=== PATIENT | male | born 1945 | race Two or more races ===

== ENCOUNTER → 2020-11-08 11:04 | Outpatient (BNVA) | payer OTHER, SELFPAY | PROVIDERS: Visit Provider Physician Assistant | DX: S50.01XA Contusion of right elbow, initial encounter (principal); W20.8XXA Other cause of strike by thrown, projected or falling object, initial encounter | CPT/HCPCS: 99202 ==

== ENCOUNTER → 2020-11-11 13:16 | Outpatient (BNVA) | payer OTHER, SELFPAY | PROVIDERS: Visit Provider Internal Medicine | DX: S50.01XA Contusion of right elbow, initial encounter (principal); X58.XXXA Exposure to other specified factors, initial encounter | CPT/HCPCS: 99213 ==

== ENCOUNTER → 2020-11-15 14:35 | Outpatient (BNVA) | payer OTHER, SELFPAY | PROVIDERS: Visit Provider Internal Medicine | DX: S52.121D Displaced fracture of head of right radius, subsequent encounter for closed fracture with routine healing (principal); X58.XXXD Exposure to other specified factors, subsequent encounter | CPT/HCPCS: 73080; 99214 ==

== ENCOUNTER → 2020-11-22 14:12 | Outpatient (BNVA) | payer OTHER, SELFPAY | PROVIDERS: Visit Provider Internal Medicine | DX: S52.121D Displaced fracture of head of right radius, subsequent encounter for closed fracture with routine healing (principal); X58.XXXD Exposure to other specified factors, subsequent encounter | CPT/HCPCS: 99213 ==

== ENCOUNTER 2020-11-23 12:49 | Outpatient (REF) | payer OTHER, SELFPAY ==
--- NOTE | ~2020-11-23 | XR_ITS ---
EXAMINATION: XR ELBOW, RIGHT CLINICAL INFORMATION: S42.401A - Unspecified fracture of lower end of right humerus, initial encounter for closed fracture Patient Shielded? COMPARISON: Radiographs right elbow 11/15/2020. TECHNIQUE: Right elbow is imaged in 4 views. FINDINGS: The capsular effusion appears decreased. There is no visible fracture, dislocation or destructive process. No focal joint narrowing or erosive change. Again, there is spurring and proximal tendon mineralization adjacent to lateral epicondyle and tendon mineralization insertion radial tuberosity as previously noted. XR/XR elbow RT min 3V IMPRESSION: 1. Moderate elbow capsular effusion, decreased from 11/15/2020. 2. No visible fracture or dislocation. 3. Spurring and mineralization tendon origin lateral epicondyle and tendon insertion radial tuberosity.
--- NOTE | ~2020-11-23 | XR_ITS ---
EXAMINATION: XR RIGHT WRIST WITH SCAPHOID VIEW CLINICAL INFORMATION: Pain right wrist. COMPARISON: None. TECHNIQUE: 4 views. FINDINGS: There is no visible acute fracture, dislocation or subluxation. The radioulnar carpal and intercarpal joint articulation is normal. No visible acute fracture or dislocation seen. There is calcification of TFC. The soft tissues are normal. XR/XR wrist RT w scaphoid IMPRESSION: Mild degenerative changes of the wrist joint. No visible acute fracture or dislocation.
== END 2020-11-23 12:50 | disposition home or self-care (01) ==
LOC: HO.HOSX 12:49
PROVIDERS: Visit Provider Orthopaedic Surgery
DX: S62.001A Unspecified fracture of navicular [scaphoid] bone of right wrist, initial encounter for closed fracture (principal); M25.531 Pain in right wrist; M25.521 Pain in right elbow
CPT/HCPCS: 24650; 73080; 73110; 99202

== ENCOUNTER 2020-12-21 09:19 | Outpatient (REF) | payer OTHER, SELFPAY ==
--- NOTE | ~2020-12-21 | XR_ITS ---
EXAMINATION: XR RIGHT ELBOW AND RIGHT WRIST CLINICAL INFORMATION: Pain right elbow and right wrist. COMPARISON: None. TECHNIQUE: AP, lateral, and oblique views of the right elbow. Right wrist 3 views. FINDINGS: Right Wrist: There is no visible acute fracture or dislocation. There is mild osteopenia. There is loss of radioulnar carpal joint space and mild subchondral cystic changes along the base of the 5th metacarpal. There are vascular calcifications present. There is mild palmar soft tissue swelling. Right Elbow: There is no visible acute fracture, dislocation or subluxation. No bony erosive changes. There is anterior elbow joint effusion. XR/XR elbow RT min 3V IMPRESSION: Mild degenerative changes right wrist. No visible acute fracture or dislocation. Anterior elbow joint effusion. This could be secondary to inflammatory changes or an occult fracture. Correlate with patient's clinical history of any trauma.
--- NOTE | ~2020-12-21 | XR_ITS ---
EXAMINATION: XR RIGHT ELBOW AND RIGHT WRIST CLINICAL INFORMATION: Pain right elbow and right wrist. COMPARISON: None. TECHNIQUE: AP, lateral, and oblique views of the right elbow. Right wrist 3 views. FINDINGS: Right Wrist: There is no visible acute fracture or dislocation. There is mild osteopenia. There is loss of radioulnar carpal joint space and mild subchondral cystic changes along the base of the 5th metacarpal. There are vascular calcifications present. There is mild palmar soft tissue swelling. Right Elbow: There is no visible acute fracture, dislocation or subluxation. No bony erosive changes. There is anterior elbow joint effusion. XR/XR wrist RT w scaphoid IMPRESSION: Mild degenerative changes right wrist. No visible acute fracture or dislocation. Anterior elbow joint effusion. This could be secondary to inflammatory changes or an occult fracture. Correlate with patient's clinical history of any trauma.
== END 2020-12-21 09:20 | disposition home or self-care (01) ==
LOC: HO.HOSX 09:19
PROVIDERS: Visit Provider Orthopaedic Surgery
DX: M25.521 Pain in right elbow (principal); M25.531 Pain in right wrist; J43.9 Emphysema, unspecified; Z87.891 Personal history of nicotine dependence; Z90.49 Acquired absence of other specified parts of digestive tract; S62.001A Unspecified fracture of navicular [scaphoid] bone of right wrist, initial encounter for closed fracture; X50.3XXA Overexertion from repetitive movements, initial encounter; Y93.89 Activity, other specified; Y92.69 Other specified industrial and construction area as the place of occurrence of the external cause; Y99.8 Other external cause status
CPT/HCPCS: 73080; 73110; 99212

== ENCOUNTER 2020-12-30 10:53 | Outpatient (REF) | payer OTHER, SELFPAY ==
--- NOTE | ~2020-12-30 | MR_ITS ---
EXAMINATION: MR WRIST WITHOUT CONTRAST, RIGHT CLINICAL INFORMATION: Right wrist pain. COMPARISON: Radiographs 12/21/2020 TECHNIQUE: MRI of the wrist was performed using routine sequences on a high-field scanner. Image quality is degraded by patient motion artifact. FINDINGS: There is increased signal throughout the scapholunate ligament with ill-defined areas of irregularity likely representing at least a partial tear. There are degenerative marrow changes of the scaphoid and lunate at the scapholunate junction. The lunotriquetral ligament appears intact. The triangular fibrocartilage complex appears to be intact with degeneration/synovitis at the peripheral attachments onto the ulnar styloid, and degenerative marrow change of the radius at the radial attachment. Small effusions of the radiocarpal and midcarpal joints with degenerative changes elsewhere including the triscaphoid articulation, junction of the trapezoid and capitate, and junction of the lunate with the proximal hamate. The carpal tunnel, flexor and extensor tendons appear intact. MR/MR wrist RT wo con IMPRESSION: Degenerative changes, as described, with joint effusions and probable partial tearing of the scapholunate ligament without interval widening.
== END 2020-12-30 10:54 | disposition home or self-care (01) ==
LOC: HO.MRI 10:53
PROVIDERS: Visit Provider Orthopaedic Surgery
DX: M25.531 Pain in right wrist (principal)
CPT/HCPCS: 73221

== ENCOUNTER → 2021-01-10 11:29 | Outpatient (BNVA) | payer OTHER, SELFPAY | PROVIDERS: Visit Provider Orthopaedic Surgery | DX: M25.531 Pain in right wrist (principal); M25.521 Pain in right elbow; M25.511 Pain in right shoulder | CPT/HCPCS: 99212 ==

== ENCOUNTER 2021-01-20 08:42 | Outpatient (REF) | payer OTHER, MEDICARE, SELFPAY ==
--- NOTE | ~2021-01-20 | XR_ITS ---
EXAMINATION: XR SHOULDER, RIGHT CLINICAL INFORMATION: Pain in the shoulder COMPARISON: None TECHNIQUE: Three views of the right shoulder. FINDINGS: No fracture or dislocation. Mild joint space narrowing with small osteophytes. Chondrocalcinosis noted. The acromioclavicular joint is intact with mild hypertrophic degenerative change. The visualized ribs are intact. Bandlike opacity in the visualized right midlung. XR/XR shoulder RT min 2V IMPRESSION: Mild degenerative changes of the right shoulder.
== END 2021-01-20 08:43 | disposition home or self-care (01) ==
LOC: HO.HOSX 08:42
PROVIDERS: Visit Provider Physician Assistant
DX: M25.511 Pain in right shoulder (principal); M75.41 Impingement syndrome of right shoulder
CPT/HCPCS: 20610; 73030; 99202; J1040

== ENCOUNTER → 2021-03-03 13:05 | Outpatient (BNVA) | payer OTHER, MEDICARE, SELFPAY | PROVIDERS: Visit Provider Physician Assistant | DX: M75.41 Impingement syndrome of right shoulder (principal); M25.519 Pain in unspecified shoulder | CPT/HCPCS: 99212 ==

== ENCOUNTER → 2021-03-28 13:00 | Outpatient (BNVA) | payer OTHER, MEDICARE, SELFPAY | PROVIDERS: Visit Provider Physician Assistant | DX: M75.41 Impingement syndrome of right shoulder (principal) | CPT/HCPCS: 99212 ==

== ENCOUNTER 2021-03-28 14:00 | Outpatient (RCR) | payer OTHER, MEDICARE, SELFPAY ==
--- NOTE | 2021-01-16 15:16 | MHC.OT.OEV ---
[address] [phone] F: [phone] Occupational Therapy Evaluation Diagnosis: Right wrist pain Date of Onset: 11/03/20 Attending Provider: Dr Ngo Prescribed Treatment: Eval and Treat, work on ROM and function MD Follow Up Appointment: History of Current Condition: 75-year-old male was at work, pulling against a crowbar and felt a sudden pain in his right arm and his right wrist. He was seen in ortho by Dr Ngo, he was placed Exos splint and has now in a pre-maurizio resting wrist orthosis. X-ray (-) for radius or scaphoid fracture, MRI shows partial tear of scapholunate ligament. He also has reported worsening right shoulder pain and has been referred to specialist for further assessment. 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 Living Situation, Family and/or Social Support: Lives w/ , daughter lives nearby Current Level of Function and Occupation Self Care, Employment, Leisure: Currently out of work, trying to do more housework Sleep: Sleeps on his left side, occasionally wakes w/ pain in right shoulder, wakes w/ right hand swelling and stiffness Driving: Recently began driving, daughter was doing it for him Pain Assessment Pain Score: 5 Pain Scale Used: Numeric (0 - 10) Pain Location and Description: 5/10 sharp/ache in wrist and fingers 4/10 daytime pain in shoulder, 9/10 nighttime pain in shoulder tightness Aggravating Factors: Shoulder aggravated by overhead movements, putting on his jacket Hand/wrist pain w/ movement Alleviating Factors: Tramadol for neck arthritis Enjoys the heat from the shower Nerve assessment Ulnar Nerve: WFL Median Nerve: WFL Radial Nerve: WFL Comments: Testing limited due to pain only Sensory Assessment Comments: Pt reports 'roughness' to light touch on volar D2-D3 compared to left hand Edema Assessment Comments: Mild edema in right hand dorsum Dexterity Assessment Comments: Nine Hole Peg: Right 28 sec Left 25 sec Special Tests Comments: AROM(PROM) Strength Cervical Cervical Flexion: Cervical Extension: Cervical Lateral Flexion: Cervical Rotation: Comments: Limited end range throughout, hx of cervical arthritis Shoulder Flexion: R 90 L 170 Extension: WFL Abduction: R 80 L 170 Internal Rotation: WFL External Rotation: R 40 L 80 Comments: Very tender to palpate anterior humerus at deltoid insertion, guarded w/ movements. X-ray scheduled for this coming Saturday01/20/21/ Flexion: Extension: Abduction: Internal Rotation: External Rotation: Comments: Shoulder flex, ext rot and abd grossly 3-/5 Elbow Flexion: R 130 L 150 Extension: R 44 L 0 Pronation: R 70 L 80 Supination: R 60 L 80 Comments: Flexion: Extension: Pronation: Supination: Comments: Wrist Flexion: R 45 L 60 Extension: R 40 L 50 Ulnar Deviation: Radial Deviation: Comments: Flexion: Extension: R 4 L 5 Ulnar Deviation: Radial Deviation: Comments: Thumb Thumb CMC Flexion: Thumb MCP Flexion: Thumb IP Flexion: Radial Abduction: Palmar Abduction: [place] ([place] 0-10): R 6 L 10 Comments: Digits Index MCP: PIP: DIP: Long MCP: PIP: DIP: Ring MCP: PIP: DIP: Small MCP: PIP: DIP: Comments: Min decreased end range digit flex right hand w/ intrinsic tightness Gross Grasp: R NT L 72 lb Lateral Pinch: Two-Point Pinch: Three-Jaw Endy: Comments: Right UE very guarded Patient Education Primary Language: Romansh Recruiter Specialist Required: Current Knowledge: Understands information with skills for self-management Teaching Method: Demonstration Handouts Verbal Education Needs Identified on Evaluation: ADL's Disease Information Equipment Use Exercise Pain Safety How did patient/family demonstrate learning? Patient demonstrates Patient verbalizes Barriers to Learning: None Readiness for Learning: Accepting Who was educated? Patient Comments: Plan of Care Assessment: 75 yo male presents about 10.5 weeks after overuse/strain injury at work when prying on a heavy crowbar. He has been out of work since that time w/ persistent pain in right shoulder, elbow and wrist. He has limited, painful shoulder flex, abd and ext rotation w/ tenderness to palpate anterior shoulder at deltoid insertion. Elbow has minimal pain and moderate pain in mid-dorsal wrist. He also has limited end range elbow flex/ext, forearm rotation, wrist flex/ext and digit active ext. He has not been able to participate in heavy household activities, has much discomfort w/ sleep and has just recently returned to driving. He will benefit from cont'd therapy services to address decreased range, strength and functional use of right UE. STG Duration: 2 weeks Short Term Goals: Full thumb opp to level 10 Full passive composite digit ext Elbow ext to 20 degrees Elbow flex to 140 degrees Self PROM shoulder flex to 120 Right gross grasp 20lb LTG Duration: 6 weeks Care Home Goals: Full wrist ROM 50/60 (per left side) Elbow ext to 10 degrees Elbow flex to 145 degress Active shoulder flex to 120 degrees Active shoulder ext rot to 75 degrees Right gross grasp >50lb Pain free right wrist at rest Pt to return to light duty at work Frequency and Duration: The patient will be seen 2x/wk for 6 weeks Treatment Plan: Therapeutic Exercise Therapeutic Activity Home Exercise Program Splinting Patient Education Desensitization/Sensory Re-ed Edema Control ADL Training Ultrasound NMES Iontophoresis Paraffin Fluidotherapy MHP Cold Packs Joint Mobilization Soft Tissue Mobilization Kinesiotaping Electronically Signed By: Lidia Amin OTR/L Reviewed/agree with student documentation: N/A Please sign and return to therapist, Thank you for your referral.
--- NOTE | 2021-03-02 14:31 | MHC.OT.OP ---
[address] [phone] F: [phone] Occupational Therapy Progress Note Diagnosis: Right wrist pain Date of Evaluation: 01/16/21 Treatments to Date: 11 Subjective: It's getting better Pain Score: 2 Pain Location: Right anterior shoulder, occasional-minimal pain in wrist/hand Objective Measures: Shoulder flex 110 abd 115 ext rot 75 Elbow ext/flex 5/150 Wrist ext/flex 54/58 Forearm pro/sup 85/75 Thumb opp to level 10 Gross Grasp 55lb (Left 95) Status: Progressing Assessment: Ed is progressing well and wrist and shoulder pain s/p overuse inury at work in October. He continues to wear resting wrist orthosis occasionally for comfort, but has good range and minimal pain in wrist, only with heavier gripping and activities. His primary complaint is right shoulder pain, specifically in anterior shoulder and over bicipital groove, but lowe pain at baseline. He has made immense progress since initial assessment and is highly motivated w/ good participation in home program. Improving shoulder in all planes, less pain w/ internal rotation today, more pain w/ resisted external rotation. (-) drop arm test, (-) bear hug test. He is progressing very well towards goals, we have updated to reflect recent gains. Short Term Goals: Full thumb opp to level 10 (met) Full passive composite digit ext (met) Elbow ext to 20 degrees (met) Elbow flex to 140 degrees (met) Self PROM shoulder flex to 120 Right gross grasp 20lb (met) Physiological Chemist Goals: Full wrist ROM 50/60 (per left side) (met) Elbow ext to 10 degrees (met) Elbow flex to 145 degress (met) Active shoulder flex to 120 degrees Active shoulder ext rot to 75 degrees (met) Right gross grasp >50lb (met) updated - Gross Grasp 75lb Pain free right wrist at rest (met) Pt to return to light duty at work Right shoulder abd to 120 Frequency and Duration: The patient will be seen 2x/wk for 4 weeks Treatment Plan: Therapeutic Exercise Therapeutic Activity Home Exercise Program Patient Education Edema Control ADL Training Ultrasound Fluidotherapy MHP Cold Packs Joint Mobilization Soft Tissue Mobilization Kinesiotaping Ed may be able to return to light work duties, but I would continue to limit heavy lifting, gripping, twisting or overhead movements w/ right arm. Electronically Signed By: Lidia mAin OTR/L Reviewed/agree with student documentation: N/A Therapist:
--- NOTE | 2021-04-13 13:26 | MHC.OT.DC ---
[address] [phone] F: [phone] Occupational Therapy Discharge Note Provider: Dr Ngo Diagnosis: Right wrist pain Date of Evaluation: 01/16/21 Date of Discharge: 04/13/21 Treatments to Date: 18 Cancellations to Date: 0 No Shows to Date: 0 Discharge Status: Achieved Goals Improved Function Independent with HEP Discharge Summary: Jaquan was referred to OT for management of right UE pain after strain injury at work in October. He has progressed very well and has returned to work. He has been very motivated w/ good follow through w/ home program. He continues to have decreased end range shoulder movement and mild pain w/ overhead movements, but good functional use of right arm and has good awareness of joint protection. Electronically Signed By: Lidia Amin OTR/L Please Sign and return to therapist, thank you for your referral.
== END 2021-04-13 13:00 | disposition home or self-care (01) ==
LOC: HO.OT 14:00
PROVIDERS: Visit Provider Orthopaedic Surgery
DX: M25.531 Pain in right wrist (principal)
CPT/HCPCS: 97033; 97035; 97110; 97140; 97166; 97530

== ENCOUNTER → 2022-02-13 13:09 | Outpatient (BNVA) | payer OTHER, SELFPAY | PROVIDERS: Visit Provider Internal Medicine | DX: S29.011A Strain of muscle and tendon of front wall of thorax, initial encounter (principal); X50.9XXA Other and unspecified overexertion or strenuous movements or postures, initial encounter | CPT/HCPCS: 71046; 99214 ==

== ENCOUNTER → 2022-02-16 09:45 | Outpatient (BNVA) | payer OTHER, SELFPAY | PROVIDERS: Visit Provider Internal Medicine | DX: R07.89 Other chest pain (principal) | CPT/HCPCS: 99213 ==